=== PATIENT | female | born 1975 | race Caucasian/White ===

== ENCOUNTER 2025-01-11 13:51 | Oncology outpatient (recurring) (ONCR) | payer OTHER, MEDICAID, SELFPAY ==
[2025-01-11] MEDS: ferric carboxy (PYXIS) 750 MG in sodium chloride 0.9% (100 ml) 100 ML 345 MG IV (14:49)
== END 2025-02-03 23:59 | disposition home or self-care (01) ==
PROVIDERS: Visit Provider Internal Medicine Medical Oncology
DX: D50.9 Iron deficiency anemia, unspecified (principal); Z79.899 Other long term (current) drug therapy
CPT/HCPCS: 96365; J1439

== ENCOUNTER 2025-02-08 13:27 | Oncology outpatient (recurring) (ONCR) | payer OTHER, MEDICAID, SELFPAY ==
--- NOTE | 2025-02-08 13:37 | MM_ITS ---
WS: [id number] LEFT 3D TOMOSYNTHESIS DIGITAL MAMMOGRAPHY WITH CAD CLINICAL INFORMATION: LUMP IN LEFT BREAST HISTORY: Additional views COMPARISON: 01/26/2025 TECHNIQUE: 3 views of the left breast were obtained. FINDINGS: Scattered fibroglandular densities of the left breast. Again seen is the ovoid nodular density inferior LEFT breast measuring 1.4 cm. Ultrasound is pending. ULTRASOUND BREAST LEFT TECHNIQUE: Ultrasound left breast focused area of concern. CLINICAL INFORMATION: LUMP IN LEFT BREAST FINDINGS: Ultrasound LEFT breast inferior quadrant. Small lymph node measuring 5 mm at the 4 o'clock position 3 cm from the nipple. Dense parenchymal tissue in the inferior quadrant. No focal cystic or solid lesions. No suspicious lesions to target for biopsy. Recommend return to annual screening mammography. MM/MM diag LT tomosynthesis [id number] IMPRESSION: DENSITY: There are scattered areas of fibroglandular density. BI-RADS: 2 - Benign. FOLLOW UP: 1 Year Follow-up Recommend return to annual screening mammography.
--- NOTE | 2025-02-08 14:30 | US_ITS ---
WS: [id number] LEFT 3D TOMOSYNTHESIS DIGITAL MAMMOGRAPHY WITH CAD CLINICAL INFORMATION: LUMP IN LEFT BREAST HISTORY: Additional views COMPARISON: 01/26/2025 TECHNIQUE: 3 views of the left breast were obtained. FINDINGS: Scattered fibroglandular densities of the left breast. Again seen is the ovoid nodular density inferior LEFT breast measuring 1.4 cm. Ultrasound is pending. ULTRASOUND BREAST LEFT TECHNIQUE: Ultrasound left breast focused area of concern. CLINICAL INFORMATION: LUMP IN LEFT BREAST FINDINGS: Ultrasound LEFT breast inferior quadrant. Small lymph node measuring 5 mm at the 4 o'clock position 3 cm from the nipple. Dense parenchymal tissue in the inferior quadrant. No focal cystic or solid lesions. No suspicious lesions to target for biopsy. Recommend return to annual screening mammography. US/US breast LT complete [id number] IMPRESSION: DENSITY: There are scattered areas of fibroglandular density. BI-RADS: 2 - Benign. FOLLOW UP: 1 Year Follow-up Recommend return to annual screening mammography.
== END 2025-03-06 23:59 | disposition home or self-care (01) ==
LOC: ONCMED 13:28
PROVIDERS: Visit Provider Specialist
DX: R92.322 Mammographic fibroglandular density, left breast (principal); N63.24 Unspecified lump in the left breast, lower inner quadrant
CPT/HCPCS: 76641; 77061; G0279

== ENCOUNTER → 2025-02-11 13:18 | Outpatient (BNVA) | payer OTHER, MEDICAID, SELFPAY | PROVIDERS: Visit Provider Podiatrist Foot & Ankle Surgery | DX: Z98.890 Other specified postprocedural states (principal); Z87.81 Personal history of (healed) traumatic fracture | CPT/HCPCS: 73610 ==

== ENCOUNTER 2025-03-17 10:40 | Oncology outpatient (recurring) (ONCR) | payer OTHER, MEDICAID, SELFPAY ==
[2025-03-17 11:06] LABS: Basophils # 0.1 10^3/uL (0.0-0.1); Basophils % 0.6 %; Eosinophils # 0.1 10^3/uL (0.0-0.8); Eosinophils % 0.7 %; Lymphocytes # 2.5 10^3/uL (0.8-4.8); Lymphocytes % 22.9 %; Mean Corpuscular HGB Conc 32.1 g/dL (30-55); Mean Corpuscular Hemoglobin 27.1 pg (27-33); Mean Corpuscular Volume 84.3 fl (85-98); Monocytes # 0.7 10^3/uL (0.2-0.9); Monocytes % 6.2 %; Neutrophils # 7.54 10^3/uL (1.8-7.7); Neutrophils % 69.2 %; Nucleated Red Blood Cells % 0 %; Platelet Count 490 10^3/cmm (157-399); Red Blood Count 4.51 10^6/uL (3.85-5.65); Red Cell Distribution Width 14.6 % (12.1-15.1); Reticulocyte % 1.4 % (0.5-2.0)
[2025-03-17 11:08] LABS: Erythrocyte Sedimentation Rate 8 mm/hr (0-15)
[2025-03-17 11:25] LABS: Alanine Aminotransferase 22 U/L (0-33); Albumin Level 4.4 g/dL (3.5-5.2); Alkaline Phosphatase 129 U/L (35-105); Anion Gap 14.4 (5-19); Aspartate Amino Transferase 16 U/L (0-32); Blood Urea Nitrogen 9 mg/dL (6-20); Calcium 9.3 mg/dL (8.5-10.5); Carbon Dioxide 24 mmol/L (22-29); Chloride 104 mmol/L (98-107); Ferritin 16 ng/mL (15-150); Glomerular Filtration Rate 107.2 mL/min (90-130); Glucose 124 mg/dL (65-115); Iron 20 ug/dL (37-145); Lactate Dehydrogenase 169 U/L (135-214); Osmolality Calculated 286 mOsm/kg (285-295); Percent Saturation 5.2 % (20-50); Potassium 4.4 mmol/L (3.5-5.1); Sodium 138 mmol/L (136-145); Total Bilirubin 0.2 mg/dL (0.15-1.2); Total Iron Binding Capacity 382 mcg/dl; Total Protein 7.4 g/dL (6.6-8.7); Unsaturated Iron Binding 362 ug/dL (112-347)
== END 2025-04-05 23:59 | disposition home or self-care (01) ==
PROVIDERS: Visit Provider Internal Medicine
DX: D50.8 Other iron deficiency anemias (principal)
CPT/HCPCS: 36415; 80053; 82728; 83010; 83540; 83550; 83615; 85025; 85045; 85651

== ENCOUNTER → 2025-04-28 08:31 | Outpatient (BNVA) | payer OTHER, MEDICAID, SELFPAY | PROVIDERS: Visit Provider Nurse Practitioner Women's Health | DX: Z30.46 Encounter for surveillance of implantable subdermal contraceptive (principal) | CPT/HCPCS: 81025 ==

== ENCOUNTER 2025-04-30 14:08 | Outpatient (CLI) | payer OTHER, MEDICAID, SELFPAY ==
--- NOTE | 2025-04-30 14:12 | XR_ITS ---
WS: [id number] Left hand, 3 views, 04/30/2025 Clinical Data: left joint pain Comparison: None. Findings: No fractures or dislocations are seen. The soft tissues are unremarkable. The joint spaces are normal XR/XR hand LT min 3V* [id number] Impression: Negative left hand.
== END 2025-04-30 14:09 | disposition home or self-care (01) ==
LOC: RAD 14:09
DX: M25.542 Pain in joints of left hand (principal)
CPT/HCPCS: 73130; 85025; 85651; 86140; 86160; 86162; 86235; 86255; 86376; 86431

== ENCOUNTER → 2025-05-03 16:10 | Outpatient (BNVA) | payer OTHER, MEDICAID, SELFPAY | PROVIDERS: Visit Provider Nurse Practitioner Women's Health | DX: Z01.419 Encounter for gynecological examination (general) (routine) without abnormal findings (principal) | CPT/HCPCS: 87624 ==

== ENCOUNTER 2025-05-07 10:24 | Oncology outpatient (recurring) (ONCR) | payer OTHER, MEDICAID, SELFPAY ==
[2025-05-07] MEDS: ferric carboxy (IVPB) 750 MG in sodium chloride 0.9% (100 ml) 100 ML 345 MG IV (11:07)
[2025-05-07 11:41] VITALS: BP 150/90; PULSE 112; RESP 16; O2SAT 96
== END 2025-06-06 23:59 | disposition home or self-care (01) ==
PROVIDERS: Visit Provider Internal Medicine
DX: D50.8 Other iron deficiency anemias (principal); R92.322 Mammographic fibroglandular density, left breast; N63.24 Unspecified lump in the left breast, lower inner quadrant
CPT/HCPCS: 96365; J1439

== ENCOUNTER 2025-06-23 08:01 | Oncology outpatient (recurring) (ONCR) | payer OTHER, MEDICAID, SELFPAY ==
[2025-06-18 08:25] LABS: Hematocrit 40.1 % (36-47); Hemoglobin 12.90 g/dL (11.27-16.99); Mean Corpuscular HGB Conc 32.2 g/dL (30-55); Mean Corpuscular Hemoglobin 26.3 pg (27-33); Mean Corpuscular Volume 81.7 fl (85-98); Nucleated Red Blood Cells % 0 %; Platelet Count 495 10^3/cmm (157-399); Red Blood Count 4.91 10^6/uL (3.85-5.65); White Blood Count 10.41 10^3/uL (3.29-11.43)
[2025-06-18 08:46] LABS: Alanine Aminotransferase 23 U/L (0-33); Albumin Level 4.5 g/dL (3.5-5.2); Alkaline Phosphatase 123 U/L (35-105); Anion Gap 14.5 (5-19); Aspartate Amino Transferase 17 U/L (0-32); Blood Urea Nitrogen 9 mg/dL (6-20); Calcium 9.7 mg/dL (8.5-10.5); Carbon Dioxide 23 mmol/L (22-29); Chloride 106 mmol/L (98-107); Ferritin 49 ng/mL (15-150); Globulin 3.2 g/dL (1.3-4.6); Glucose 130 mg/dL (65-115); Osmolality Calculated 288 mOsm/kg (285-295); Potassium 4.5 mmol/L (3.5-5.1); Sodium 139 mmol/L (136-145); Total Protein 7.7 g/dL (6.6-8.7)
[2025-06-19 09:59] LABS: PROTEIN, TOTAL 7.3 g/dL (6.1-8.1)
[2025-06-21 21:30] LABS: ALPHA 1 GLOBULIN 0.3 g/dL (0.2-0.3); ALPHA 2 GLOBULIN 0.8 g/dL (0.5-0.9); BETA 1 GLOBULIN 0.5 g/dL (0.4-0.6); BETA 2 GLOBULIN 0.6 g/dL (0.2-0.5)
== END 2025-07-06 23:59 | disposition home or self-care (01) ==
PROVIDERS: Visit Provider Internal Medicine
DX: D50.8 Other iron deficiency anemias (principal)
CPT/HCPCS: 36415; 80053; 82728; 83550; 83615; 84155; 84165; 85025; 85045; 85651

== ENCOUNTER 2025-08-06 08:46 | Outpatient (CLI) | payer OTHER, MEDICAID, SELFPAY ==
[2025-08-06 11:05] LABS: Hematocrit 36.6 % (36-47); Hemoglobin 11.90 g/dL (11.27-16.99); Mean Corpuscular HGB Conc 32.5 g/dL (30-55); Mean Corpuscular Hemoglobin 26.3 pg (27-33); Mean Corpuscular Volume 80.8 fl (85-98); Nucleated Red Blood Cells % 0 %; Platelet Count 595 10^3/cmm (157-399); Red Blood Count 4.53 10^6/uL (3.85-5.65); White Blood Count 12.61 10^3/uL (3.29-11.43)
[2025-08-06 11:33] LABS: Alanine Aminotransferase 18 U/L (0-33); Albumin Level 4.5 g/dL (3.5-5.2); Alkaline Phosphatase 107 U/L (35-105); Anion Gap 20.2 (5-19); Aspartate Amino Transferase 16 U/L (0-32); Blood Urea Nitrogen 15 mg/dL (6-20); Calcium 9.3 mg/dL (8.5-10.5); Carbon Dioxide 21 mmol/L (22-29); Chloride 101 mmol/L (98-107); Ferritin 18 ng/mL (15-150); Globulin 3.4 g/dL (1.3-4.6); Glucose 89 mg/dL (65-115); Iron 18 ug/dL (37-145); Osmolality Calculated 286 mOsm/kg (285-295); Potassium 4.2 mmol/L (3.5-5.1); Sodium 138 mmol/L (136-145); Total Iron Binding Capacity 413 mcg/dl; Total Protein 7.9 g/dL (6.6-8.7); Unsaturated Iron Binding 395 ug/dL (112-347)
[2025-08-06 11:47] LABS: Hepatitis B Surface Antigen Non-Reactive (Nonreactive)
[2025-08-06 11:48] LABS: Vitamin B12 565 pg/mL (232-1245)
== END 2025-08-06 08:47 | disposition home or self-care (01) ==
LOC: LAB 08:46
PROVIDERS: Nurse Practitioner Family; Visit Provider Internal Medicine Rheumatology
DX: M25.542 Pain in joints of left hand (principal); M25.50 Pain in unspecified joint; R53.2 Functional quadriplegia; D50.8 Other iron deficiency anemias
CPT/HCPCS: 80053; 82306; 82607; 82728; 82746; 83520; 83540; 83550; 83615; 85025; 85045; 86200; 86480; 86704; 86803; 87340

== ENCOUNTER 2025-08-30 06:00 | Oncology outpatient (recurring) (ONCR) | payer OTHER, MEDICAID, SELFPAY ==
[2025-08-30] MEDS: sodium chloride 0.9% (100 ml) 100 ML 200 ML IV (15:55)
[2025-08-30 16:24] VITALS: BP 119/75; PULSE 88; RESP 16; TEMP 36.7; O2SAT 98
== END 2025-09-05 23:59 | disposition home or self-care (01) ==
LOC: ONCMED 08-31 09:35
PROVIDERS: Visit Provider Internal Medicine
DX: D50.9 Iron deficiency anemia, unspecified (principal); Z79.899 Other long term (current) drug therapy
CPT/HCPCS: 96365; J1439

== ENCOUNTER 2025-09-10 07:55 | Oncology outpatient (recurring) (ONCR) | payer OTHER, MEDICAID, SELFPAY ==
[2025-09-10] MEDS: ferric carboxy (PYXIS) 750 MG in sodium chloride 0.9% (100 ml) 100 ML 345 MG IV (08:36)
[2025-09-10 08:52] VITALS: BP 145/88; PULSE 106; TEMP 36.4; O2SAT 97
== END 2025-10-06 23:59 | disposition home or self-care (01) ==
LOC: ONCMED 07:55
PROVIDERS: Visit Provider Internal Medicine
DX: D50.9 Iron deficiency anemia, unspecified (principal); Z79.899 Other long term (current) drug therapy
CPT/HCPCS: 96365; J1439